=== PATIENT | male | born 1970 | race Two or more races ===

== ENCOUNTER 2017-09-14 10:32 | Emergency (ER) | payer MEDICAID, OTHER ==
[~2017-09-14] VITALS: Ht 170.2 cm; Wt 90.7 kg
[2017-09-14 10:56] VITALS: BP 156/80
== END 2017-09-14 11:36 | disposition home or self-care (01) ==
LOC: ER 10:35
DX: M10.9 Gout, unspecified (principal)
CPT/HCPCS: A4606; Z7610

== ENCOUNTER 2018-09-15 10:44 | Emergency (ER) | payer OTHER ==
[~2018-09-15] VITALS: Ht 170.2 cm; Wt 102.1 kg
[2018-09-15] MEDS ORDERED: KETOROLAC TROMETHAMINE INJ 60 MG/2 ML VIAL IM ONE ×2 (11:12→11:30)
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
--- NOTE | 2018-09-15 11:19 | NUR ---
LAB AT BEDSIDE FOR BLOOD DRAW.
--- NOTE | 2018-09-15 11:25 | NUR ---
XRAY AT BEDSIDE
--- NOTE | 2018-09-15 12:10 | NUR ---
Patient discharged to home in stable condition. Written and verbal after care instructions given. Patient verbalizes understanding of instruction.
[2018-09-15 12:11] VITALS: BP 138/93
== END 2018-09-15 12:11 | disposition home or self-care (01) ==
LOC: ER 10:46
DX: M10.061 Idiopathic gout, right knee (principal)
CPT/HCPCS: 36415; 73560; 84550; 96372; 99284; J1885

== ENCOUNTER 2018-10-13 06:49 | Emergency (ER) | payer OTHER ==
[~2018-10-13] VITALS: Ht 172.7 cm; Wt 99.8 kg
--- NOTE | 2018-10-13 06:50 | NUR ---
PT BIBWIFE C/O CHEST PRESSURE X 3 HOURS RADIATING DOWN L ARM W/SOB. DENIES ANY CARDIAC HX. NOTED PATIENT LOOKS PALE AND IS DIAPHORETIC. PT ON MONITOR IN BED 4 WITH FAMILY AT BEDSIDE. DR SHANE AT BEDSIDE FOR EVAL. WILL CONTINUE TO MONITOR.
--- NOTE | 2018-10-13 06:51 | NUR ---
[facility] AT BEDSIDE FOR EKG
[2018-10-13] MEDS ORDERED: NITROGLYCERIN 0.4 MG/TAB BOTTLE ONE (07:05)
[2018-10-13 07:10] LABS: BASOPHILS # (AUTO) 0.1 /CMM (0.0-0.2); BASOPHILS % (AUTO) 0.7 % (0.0-2.0); EOSINOPHILS % (AUTO) 3.5 % (0.0-6.0); HEMATOCRIT 51 % (39-51); HEMOGLOBIN 17.2 g/dL (13.5-17.5); LYMPHOCYTES # (AUTO) 4.2 /CMM (0.8-4.8); LYMPHOCYTES % (AUTO) 41.6 % (20.0-44.0); MEAN CORPUSCULAR HGB CONC 34 g/dl (31.0-36.0); MEAN CORPUSCULAR VOLUME 93 fL (80-96); MONOCYTES # (AUTO) 1.1 /CMM (0.1-1.30); MONOCYTES % (AUTO) 11.4 % (2.0-12.0); NEUTROPHILS # (AUTO) 4.3 /CMM (1.8-8.9); NEUTROPHILS % (AUTO) 42.8 % (43.0-81.0); PLATELET COUNT (AUTO) 189 /CMM (150-450); RED BLOOD CELL COUNT(AUTO) 5.45 MIL/uL (4.5-6.0)
--- NOTE | 2018-10-13 07:11 | NUR ---
st [facility] called for code stemi
[2018-10-13] MEDS ORDERED: BENZOIN COMPOUND TINCT 60 ML BOTTLE ONE (07:16)
[2018-10-13 07:19] LABS: CALCIUM, SERUM 9.2 mg/dL (8.5-10.1); CREATININE 1.2 mg/dL (0.6-1.3); POTASSIUM 3.7 mmol/L (3.5-5.1)
--- NOTE | 2018-10-13 07:24 | NUR ---
[facility] AT BEDSIDE FOR REPEAT EKG
[2018-10-13] MEDS ORDERED: ASPIRIN 81 MG TAB.CHEW ONE (07:25)
--- NOTE | 2018-10-13 07:26 | NUR ---
CALL BACK FROM [facility], REQUESTING FOR REPEAT EKG SENT TO THEM
--- NOTE | 2018-10-13 07:28 | NUR ---
RADIOLOGY AT BEDSIDE FOR CXR
[2018-10-13] MEDS ORDERED: NITROGLYCERIN 0.4 MG/TAB BOTTLE SL ONE (07:30)
[2018-10-13] MEDS ORDERED: ASPIRIN 81 MG TAB.CHEW PO ONE (07:30)
[2018-10-13 07:36] LABS: ALBUMIN 3.7 g/dL (3.4-5.0); BILIRUBIN,DIRECT 0.1 mg/dL (0.0-0.2); BILIRUBIN,TOTAL 0.4 mg/dL (0.2-1.0); TOTAL PROTEIN, SERUM 7.7 g/dL (6.4-8.2)
[2018-10-13] MEDS ORDERED: IOHEXOL-350 100 ML VIAL IV ONE (07:47)
[2018-10-13] MEDS ORDERED: CT SWABBABLE VALVE TRANS SET 1 EA INFUS.SET MC ONE (07:47)
[2018-10-13] MEDS ORDERED: IV NS 0.9% 250 ML IV ONE (07:48)
--- NOTE | 2018-10-13 07:50 | NUR ---
PT TO CT VIA [facility].
--- NOTE | 2018-10-13 08:01 | NUR ---
GOT BED 104. THANK YOU ANGELA.
[2018-10-13] MEDS ORDERED: MORPHINE SULFATE INJ 4 MG/ML DISP.SYRIN ONE ×2 (08:04→08:43)
[2018-10-13] MEDS ORDERED: ONDANSETRON HCL/PF 4 MG/2 ML VIAL ONE (08:04)
--- NOTE | 2018-10-13 08:12 | NUR ---
PT C/O MID CP STS 01/10. MEDICATED PER ERMD ORDERED. PT ADELE WELL.
--- NOTE | 2018-10-13 08:17 | NUR ---
CHAR CALLED FOR CTA READ NAOMI
--- NOTE | 2018-10-13 08:25 | NUR ---
PT STS CP IS GETTING BETTER 11/10. [employer] SPEAKING EMPLOYEE AT ASSISTING W/ TRANSLATION. DENIES SOB, DIZZINESS, N/V, ARM/JAW PAIN AT THIS TIME. WILL CONT TO MONITOR.
[2018-10-13] MEDS ORDERED: ONDANSETRON HCL/PF - ER 4 MG/2 ML VIAL IV ONE (08:30)
[2018-10-13] MEDS ORDERED: MORPHINE SULFATE INJ 2 MG/ML DISP.SYRIN IV ONE ×2 (08:30→09:00)
--- NOTE | 2018-10-13 08:48 | NUR ---
MEDICATED WITH 4MG OF MORPHINE IVP PER ERMD ORDER. PT ADELE WELL.
[2018-10-13] MEDS ORDERED: NTG 50 MG/D5W250 ML BOTTL 250 ML IV ONE ×2 (08:52→09:00)
--- NOTE | 2018-10-13 08:58 | NUR ---
CARDIOLOGY ON-CALL, DR BOUCHER PAGED THRU EPIC
[2018-10-13 09:07] VITALS: BP 149/108
--- NOTE | 2018-10-13 09:08 | NUR ---
INITIATED NITRO DRIP 5MCG/MIN & TITRATED TO EFFECT PER ERMD ORDER. PT ADELE WELL. MID CP 10/10. DENIES DIZZINESS, N/V, SOB, ARM/JAW PAIN AT THIS TIME. WILL CONT TO MONITOR.
--- NOTE | 2018-10-13 09:09 | NUR ---
HEPARIN IV DRIP END TIME: CONT EN ROUTE TO [facility] EMERGENCY ROOM.
--- NOTE | 2018-10-13 09:16 | NUR ---
DR. WALKER AT FOR EVAL.
[2018-10-13] MEDS ORDERED: HEPARIN INFUSION/D5W 500 ML IV ONE ×2 (09:28→09:30)
--- NOTE | 2018-10-13 09:31 | NUR ---
PT'S ACTUAL WEIGHT, 102.5 KG
--- NOTE | 2018-10-13 09:54 | NUR ---
PT EN ROUTE TO [facility]IA [facility] FOR CONT OF CARE.
== END 2018-10-13 09:56 | disposition short-term general hospital (02) ==
LOC: ER 06:50 → UNDOADMIN 09:18 → ICU 09:18
DX: I24.9 Acute ischemic heart disease, unspecified (principal); I10 Essential (primary) hypertension; F17.210 Nicotine dependence, cigarettes, uncomplicated
CPT/HCPCS: 36415; 71045; 71275; 80048; 80076; 83690; 83880; 84484 ×2; 85025; 85378; 85730; 87081; 93005 ×4; 93307; 96365; 96375; 96376; 99291; J1644; J2270 ×2; J2405 ×2; J3490; J7050; Q9967

== ENCOUNTER 2019-02-22 18:15 | Emergency (ER) | payer OTHER ==
[~2019-02-22] VITALS: Ht 167.6 cm; Wt 95.3 kg
[2019-02-22 21:02] VITALS: BP 143/97
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
[2019-02-22] MEDS ORDERED: DIAZEPAM 5 MG TABLET ONE (21:29)
[2019-02-22] MEDS ORDERED: IBUPROFEN 600 MG TABLET PO ONE (21:30)
[2019-02-22] MEDS: DIAZEPAM 10 MG TABLET PO ONE (21:42)
[2019-02-22] MEDS: IBUPROFEN 600 MG TABLET PO ONE (21:42)
--- NOTE | 2019-02-22 21:44 | NUR ---
PT REFUSED MEDS. AWARE.
--- NOTE | 2019-02-22 23:08 | NUR ---
Patient discharged to home in stable condition. Written and verbal after care instructions given. Patient verbalizes understanding of instruction. PT AMBULATORY WITH STEADY GAIT.
== END 2019-02-22 23:18 | disposition home or self-care (01) ==
LOC: ER 18:16
DX: S29.012A Strain of muscle and tendon of back wall of thorax, initial encounter (principal); R09.89 Other specified symptoms and signs involving the circulatory and respiratory systems; M85.88 Other specified disorders of bone density and structure, other site; M47.9 Spondylosis, unspecified; F17.200 Nicotine dependence, unspecified, uncomplicated; I25.10 Atherosclerotic heart disease of native coronary artery without angina pectoris; E66.9 Obesity, unspecified; Z68.33 Body mass index [BMI] 33.0-33.9, adult; Z95.5 Presence of coronary angioplasty implant and graft; Z79.01 Long term (current) use of anticoagulants; V49.49XA Driver injured in collision with other motor vehicles in traffic accident, initial encounter; Y93.89 Activity, other specified; Y92.488 Other paved roadways as the place of occurrence of the external cause; Y99.8 Other external cause status
CPT/HCPCS: 71045-TC; 72074-TC